=== PATIENT | female | born 2000 | race Caucasian/White ===

== ENCOUNTER 2024-12-20 23:41 | Emergency (ER) | payer OTHER, BC ==
[~2024-12-20] VITALS: Ht 167.6 cm; Wt 59.0 kg
[2024-12-20 23:48] VITALS: TEMP 98
[2024-12-21] MEDS ORDERED: HYDROCODONE/APAP 5/325MG TABLET ONE (01:15)
[2024-12-21] MEDS ORDERED: IBUPROFEN 600 MG TABLET ONE (01:15)
[2024-12-21] MEDS: IBUPROFEN 600 MG TABLET PO ONE (01:20)
[2024-12-21] MEDS: HYDROCODONE/APAP 5/325MG TABLET PO ONE (01:20)
[2024-12-21] MEDS ORDERED: HYDR-3972 PO (01:54)
[2024-12-21] MEDS ORDERED: IBUP-1490 PO (01:54)
[2024-12-21 02:32] VITALS: BP 118/75; O2SAT 98
== END 2024-12-21 02:33 | disposition home or self-care (01) ==
LOC: ER 23:48
DX: S52.514A Nondisplaced fracture of right radial styloid process, initial encounter for closed fracture (principal); M25.531 Pain in right wrist; M25.562 Pain in left knee; V49.9XXA Car occupant (driver) (passenger) injured in unspecified traffic accident, initial encounter; W22.19XA Striking against or struck by other automobile airbag, initial encounter; Y93.89 Activity, other specified; Y92.415 Exit ramp or entrance ramp of street or highway as the place of occurrence of the external cause; Y99.8 Other external cause status
CPT/HCPCS: 73110